=== PATIENT | female | born 1940 ===

== ENCOUNTER 2022-08-30 05:40 | Day surgery (SDC) | payer OTHER ==
[~2022-08-30 05:40] MED LIST: ADULT LOW DOSE81 M1 PO; PROTONIX40 M1 PO; SYNTHROID50 MCG PO; TYLENOL ARTHRI650 MG PO
[2022-08-30] MEDS ORDERED: ULTRACET PO (10:59)
[2022-08-30] MEDS ORDERED: MACROBID 100 M100 MG PO (10:59)
== END 2022-08-30 15:00 | disposition home or self-care (01) ==
LOC: CIR.AMB 05:40
PROVIDERS: ATTEND Obstetrics & Gynecology Gynecology
DX: N81.11 Cystocele, midline (principal); N81.6 Rectocele; N81.5 Vaginal enterocele; N81.83 Incompetence or weakening of rectovaginal tissue; Z20.822 Contact with and (suspected) exposure to COVID-19; Z91.013 Allergy to seafood; E03.9 Hypothyroidism, unspecified; M06.80 Other specified rheumatoid arthritis, unspecified site; Z79.82 Long term (current) use of aspirin